=== PATIENT | female | born 1995 | race Hispanic/Latino ===

== ENCOUNTER 2021-05-20 10:06 | Inpatient (IN) | payer OTHER ==
[~2021-05-20] VITALS: Ht 157.5 cm; Wt 66.2 kg
--- NOTE | 2021-05-20 10:57 | NUR ---
RT COLLECTED COVID 19 SWAB WITH NO COMPLICATIONS. RT USED THE CEPHEID RAPID TEST THROUGH IN HOUSE LAB PER DR REQUEST AT THIS TIME.
--- NOTE | 2021-05-20 12:08 | PR ---
[facility] [address] [facility] [place], [place] [address] Signed Progress Notes IP Datetime Report Generated by CPN: 05/20/2021 12:08 PROGRESS NOTES: [id number] Impression: Normal Progression of Labor Procedures: Sterile Vag Exam Plan: Continue Present Management; Anticipate Vaginal Delivery VITAL SIGNS: [id number] Vital Signs: Reviewed; Within Normal Limits EXAM: [id number] Dilatation: 7.0 Effacement: 100 Station: -1 Contractions: tracing poorly MEMBRANES: [id number] Comments: Comfortable with epidural Progressing very well, continue expectant mgmt FETUS A: [id number] FHR Baseline: 135 Variability: Moderate 6-25bpm Accelerations: 15X15 Decelerations: Prolonged FHR Category: Category I Comments on Fetus A: isolated prolonged decel to the 110s shortly after arrival. FETUS B: [id number] Signing Physician: Joe Bal DO Copies: ~ *Electronically Signed* 05/20/21 1208 JOE BAL DO PATIENT NAME: KELLY CHAKRABORTY PROGRESS NOTE DATE OF : 95 PHYSICIAN: JOE BAL DO [facility] #: [id number] REPORT IS CONFIDENTIAL AND NOT TO BE RELEASED WITHOUT AUTHORIZATION
--- NOTE | 2021-05-21 13:45 | PR ---
[facility] [address] [facility] [place], [place] [address] Signed PP Progress Notes Datetime Report Generated by CPN: 05/21/2021 13:45 SUBJECTIVE: [id number] Pain: Within Normal Limits Nausea/Vomiting: Denies Flatus: No Bowel Movement: Yes Vital Signs: [id number] Vital Signs: Reviewed; Within Normal Limits Cardiovascular: Normal Respiratory: Normal Abdomen/Uterus: Normal Extremities: Normal Progress: Normal Exam Comments: NAD Sitting up in bed RRR No dyspnea, no retractions Abd SNTND, FFBU Ext without edema IMPRESSION/PLAN/PROCEDURES: [id number] Impression: Normal Progression Plan: Continue Present Management; Discharge Progress Notes: PPD#1 s/p -spontaneous onset of labor -uncomplicated vaginal delivery -ambulating, voiding, tolerating regular diet, pain well controlled with motrin -undecided re: contraception -requesting DC to home today Signing Physician: Joe Bal DO Copies: ~ *Electronically Signed* 05/21/21 9621 JOE BAL DO PATIENT NAME: KELLY CHAKRABORTY PROGRESS NOTE DATE OF : 95 PHYSICIAN: JOE BAL DO RPT #: [id number] REPORT IS CONFIDENTIAL AND NOT TO BE RELEASED WITHOUT AUTHORIZATION
== END 2021-05-21 14:53 | disposition home or self-care (01) | DRG 806 ==
LOC: FBCO 10:06 → FBC 10:25
PROVIDERS: ADMIT Obstetrics & Gynecology; ATTEND Obstetrics & Gynecology
PROC: 10E0XZZ Delivery of Products of Conception, External Approach (ICD-10-PCS; principal; 2021-05-20)
PROC: 0HQ9XZZ Repair Perineum Skin, External Approach (ICD-10-PCS; 2021-05-20)
PROC: 3E0R3BZ Introduction of Anesthetic Agent into Spinal Canal, Percutaneous Approach (ICD-10-PCS; 2021-05-20)
PROC: 00HU33Z Insertion of Infusion Device into Spinal Canal, Percutaneous Approach (ICD-10-PCS; 2021-05-20)
PROC: 0UQMXZZ Repair Vulva, External Approach (ICD-10-PCS; 2021-05-20)
PROC: 10907ZC Drainage of Amniotic Fluid, Therapeutic from Products of Conception, Via Natural or Artificial Opening (ICD-10-PCS; 2021-05-20)
DX: O41.03X0 Oligohydramnios, third trimester, not applicable or unspecified (principal); O98.52 Other viral diseases complicating childbirth; Z37.0 Single live birth; Z20.822 Contact with and (suspected) exposure to COVID-19; B00.9 Herpesviral infection, unspecified; O76 Abnormality in fetal heart rate and rhythm complicating labor and delivery; O70.0 First degree perineal laceration during delivery; Z3A.38 38 weeks gestation of pregnancy
CPT/HCPCS: 01960; 85027; C9803; J2590; J2795; J3010; J7121; U0003

== ENCOUNTER 2021-06-20 19:19 | Emergency (ER) | payer OTHER ==
[~2021-06-20] VITALS: Ht 157.5 cm; Wt 60.1 kg
[2021-06-20] MEDS ORDERED: BACTRIM DS TAB1 EACH PO (21:57)
== END 2021-06-20 22:11 | disposition home or self-care (01) ==
LOC: ED 19:19
DX: L02.214 Cutaneous abscess of groin (principal); L03.314 Cellulitis of groin
CPT/HCPCS: 99282

== ENCOUNTER 2025-08-02 15:29 | Emergency (ER) | payer SELFPAY ==
[~2025-08-02] VITALS: Ht 157.5 cm; Wt 63.5 kg
[~2025-08-02 15:29] MED LIST: BACTRIM DS TAB1 EACH PO
[2025-08-02 18:05] LABS: BASOPHILS 0.3 % (0.1-1.2); EOSINOPHILS 4.8 % (0.7-5.8); LYMPHOCYTES 27.9 % (19.3-51.7); MCH 31.2 PG (25.6-32.2); MCHC 34.5 g/dL (32.2-35.5); MCV 90.3 fL (79.4-94.8); MONOCYTES 6.2 % (4.7-12.5); NEUTROPHILS 60.6 % (34.0-71.1); RBC 4.55 M/uL (3.93-5.22)
[2025-08-02 18:08] LABS: BLOOD/HGB, URINE SMALL (Negative); KETONE, URINE SMALL (Negative); LEUK ESTERASE, URINE NEGATIVE (negative); NITRITE, URINE NEGATIVE (negative)
[2025-08-02 18:15] LABS: BACTERIA, URINE NONE SEEN /hpf (negative); CASTS, URINE NONE SEEN \\lpf; CRYSTALS, URINE NONE SEEN (0-1+); EPITHELIAL CELLS, URINE SQUAMOUS 4+ /lpf (0-1+); REFLEX CULTURE, URINE No (No)
[2025-08-02] MEDS ORDERED: SODIUM CHLORIDE 0.9% 1,000 ML IV PRN (18:15)
[2025-08-02 18:18] LABS: ALT (SGPT) 20.0 U/L (14-59); AST (SGOT) 16.0 U/L (15-37); GLOMERULAR FILTRATION RATE,EST 131.0 mL/min (>60); PROTEIN, TOTAL 8.0 g/dL (6.4-8.2); UREA NITROGEN 8.0 mg/dL (7-18)
[2025-08-02] MEDS ORDERED: MORPHINE SULFATE 4 MG/ML VIAL IV ONE (20:00)
[2025-08-02] MEDS ORDERED: LACTATED RINGER'S 1,000 ML IV ONE (20:00)
[2025-08-02] MEDS ORDERED: HYDROCODON-ACE1 EA10 PO (22:35)
[2025-08-02] MEDS ORDERED: ONDANSETRON ODT8 MG PO (22:35)
[2025-08-02] MEDS ORDERED: HYDROCODONE BIT/ACETAMINOPHEN 5/325 MG 1 TAB HOME.PACK PO ONE (22:45)
[2025-08-02] MEDS ORDERED: ONDANSETRON 4 MG HOME.PACK SL ONE (22:45)
[2025-08-02 22:53] VITALS: BP 111/69
== END 2025-08-02 22:57 | disposition home or self-care (01) ==
LOC: ED 15:29
PROVIDERS: Emergency Medicine
DX: K80.70 Calculus of gallbladder and bile duct without cholecystitis without obstruction (principal)
CPT/HCPCS: 36415; 74177; 76705; 80053; 81001; 83690; 84703; 85025; A9270; J2405; J7030; J7121; Q9967